=== PATIENT | female | born 1990 | race Two or more races ===

== ENCOUNTER 2018-05-09 09:10 | Inpatient (IN) | payer SELFPAY ==
[2018-05-09] MEDS ORDERED: PROMETHAZINE HCL 25 MG/1 ML VIAL IVPUSH ONE ×2 (09:44→13:21)
[2018-05-09] MEDS ORDERED: BUTORPHANOL TARTRATE 1 MG/ML VIAL IVPB ONE (09:44)
[2018-05-09] MEDS ORDERED: ELECTROLYTE-148 SOLN 1,000 ML IV SCH (09:45)
[2018-05-09] MEDS ORDERED: AMPICILLIN - 2 GM in SODIUM CHLORIDE 100 ML IVPB ONE (09:48)
[2018-05-09] MEDS ORDERED: AMPICILLIN SODIUM 2 GM VIAL ONE (09:49)
[2018-05-09 10:16] VITALS: BMI 32.5
[2018-05-09] MEDS ORDERED: OXYTOCIN 30 UNITS in 0.9% NS 30 UNIT/500 ML INFUS.BAG IVPB SCH (10:30)
[2018-05-09] MEDS ORDERED: BUTORPHANOL TARTRATE 1 MG/ML VIAL ONE ×2 (10:38)
[2018-05-09] MEDS ORDERED: PROMETHAZINE HCL 25 MG/1 ML VIAL ONE (10:38)
[2018-05-09] MEDS ORDERED: OXYTOCIN 20 UNITS in 0.9% NS 0 UNIT/0 ML INFUS.BAG IV ONE (10:40)
[2018-05-09 10:55] LABS: BASO % 0.3 % (0-2.0); EOS % 0.5 % (0-4.5); HEMATOCRIT 35.5 % (32.4-45.2); HEMOGLOBIN 12.5 GM/dL (10.7-15.3); LYMPH % 19.5 % (8-40); MCH 32.2 pg (25.7-33.7); MCHC 35.2 g/dl (32.0-36.0); MEAN CELL VOLUME 91.7 fl (80-96); MEAN PLT VOLUME 11.6 fl (7.5-11.1); MONO % 3.7 % (3.8-10.2); PLATELET COUNT 105 K/MM3 (134-434); RBC 3.87 M/mm3 (3.60-5.2); RDW 15.2 % (11.6-15.6)
[2018-05-09] MEDS ORDERED: OXYTOCIN 30 UNITS in 0.9% NS 30 UNIT/500 ML INFUS.BAG IVPB ONE (10:58)
--- NOTE | 2018-05-09 11:05 | HP ---
Past Medical History - Primary Care Physician PCP:: Charleen Yoon - Admission Chief Complaint: 27 yrs , 39 .3 weeks gestation brought by ambulence .onset LP at 6.00AM . History of Present Illness: care at [facility] chart not available , requested wt gain 6 lbs . 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 Weeks Gestation by Dates: 39.3 ...EDC by Dates: 05/13/18 Heme/Onc: Yes: Other (unknown) Infectious Disease: Yes: Other Psych: No: Addictions, Anxiety, Bipolar, Depression, Panic, Psychosis, Schizophrenia, Other Endocrine: Yes: Other (unknown) - Past Surgical History Past Surgical History: Yes: None Hx Myomectomy: No Hx Transabdominal Cerclage: No - Smoking History Smoking history: Never smoked Have you smoked in the past 12 months: No - Alcohol/Substance Use Hx Alcohol Use: No Home Medications - Allergies Allergies/Adverse Reactions: Allergies Allergy/AdvReac Type Severity Reaction Status Date / Time No Known Allergies Allergy Verified 05/09/18 09:43 - Home Medications Home Medications: Ambulatory Orders Vitamins (Sjr) - 1 tab PO DAILY 05/09/18 Physical Exam - Maternity Vital Signs: Vital Signs Temperature 97.9 F 05/09/18 10:00 Pulse Rate 87 05/09/18 10:00 Respiratory Rate 20 05/09/18 10:00 Blood Pressure 115/76 05/09/18 10:00 O2 Sat by Pulse Oximetry (%) Selected Entries 05/09/18 10:00 Weight 196 lb Constitutional: Yes: Well Nourished Eyes: Yes: WNL HENT: Yes: WNL, Normocephalic Neck: Yes: WNL Cardiovascular: Yes: WNL Lungs: Clear to auscultation Breast(s): Yes: WNL - Abdominal Exam/OB Fundal Height: 38 Number of Fetuses: Single Presentation: Vertex (exam at 9.45 AM) Contractions: Yes Regularity: Irregular (4-7 min) Intensity: Moderate Monitor Mode: External Heart Rate (range): 140 Heart Rate Location: [facility] Category: I Accelerations: Uniform - Vaginal Exam/OB Vaginal Bleediing: No Speculum Exam: No Dilatation (cm): 6 Effacement (%): 80 Amniotic Membrane Status: Intact Presentation: Vertex/Position Station: -1 (-1/-2) - Physical Exam Musculoskeletal: Yes: WNL Extremities: Yes: WNL. No: Calf Tenderness Integumentary: Yes: Tattoos Deep Tendon Reflex Grade: Normal +2 ...Motor Strength: WNL Psychiatric: Yes: WNL, Alert, Oriented - Labs Lab Results: CBC, BMP 05/09/18 10:31 Laboratory Tests 05/09/18 10:31 PT with INR 11.30 INR 0.96 PTT (Actin FS) 27.8 Laboratory Tests 05/09/18 05/09/18 05/09/18 10:20 10:20 10:31 Sodium Potassium Chloride Carbon Dioxide Anion Gap BUN Creatinine Creat Clearance w eGFR Random Glucose Calcium Total Bilirubin AST ALT Total Protein Albumin Urine Protein Negative Urine Ketones Trace H Ur Leukocyte Esterase 3+ H Opiates Screen Negative Methadone Screen Negative Barbiturate Screen Negative Phencyclidine Screen Negative Ur Amphetamines Screen Negative MDMA (Ecstasy) Screen Negative Benzodiazepines Screen Negative Cocaine Screen Negative U Marijuana (THC) Screen Negative RPR Titer Nonreactive HIV 1&2 Antibody Screen HIV P24 Antigen 05/09/18 05/09/18 10:31 10:31 Sodium 140 Potassium 3.8 Chloride 107 Carbon Dioxide 23 Anion Gap 10 BUN 6 L Creatinine 0.5 L Creat Clearance w eGFR > 60 Random Glucose 66 L Calcium 9.1 Total Bilirubin 0.5 AST 16 ALT 14 Total Protein 6.5 Albumin 2.8 L Urine Protein Urine Ketones Ur Leukocyte Esterase Opiates Screen Methadone Screen Barbiturate Screen Phencyclidine Screen Ur Amphetamines Screen MDMA (Ecstasy) Screen Benzodiazepines Screen Cocaine Screen U Marijuana (THC) Screen RPR Titer HIV 1&2 Antibody Screen Negative HIV P24 Antigen Negative Problem List - Problems (1) with 39 completed weeks gestation Code(s): Z3A.39 - 39 WEEKS GESTATION OF (2) Positive GBS test Code(s): B95.1 - STREPTOCOCCUS, GROUP B, CAUSING DISEASES CLASSD ELSWHR (3) with care elsewhere Code(s): Z34.90 - ENCNTR FOR SUPRVSN OF NORMAL , UNSP, UNSP TRIMESTER (4) Labor established Code(s): JHK3124 - Assessment/Plan 27 yrs 39.3 weeks admitted in labor, drop in h/o gbs positive , Prophylaxis with IV Ampicillin started at 9.50AM pitocin augmentation, uc are irregular .started at 10 .45AM stadol 2 mg + phenrgan 25 mg iv stat for labor analgesia -at 10.45 AM . 12.30 PM chart obtained & reviewed panel 11/09/17 : O pos, , PLT 158, , rpr nr, Hbsg neg, hiv neg Pap normal, gc/ct neg, 1 hr gtt 64 , Measles positive NT Screen neg, SMA neg, Fragile X neg 10/30/17 dating sono : 12 3 days 12/25/17 : 21.4 wks , , by sono 22.2 weeks , intracardiac echogenic focus sono 04/30/18 1 hr Gtt 154, GBS pos , gc/ct neg , h/h 11.6/33.9, plt 104, Hiv neg
[2018-05-09 11:07] LABS: INR 0.96 (0.83-1.09); PROTHROMBIN TIME (PATIENT) 11.3 SEC (9.7-13.0)
[2018-05-09 11:10] LABS: ACTIVATED PTT 27.8 SECONDS (25.2-36.5)
[2018-05-09 11:25] LABS: URINE APPEARANCE SLCLOUDY; URINE BILIRUBIN NEGATIVE (<2.0 mg/dL); URINE COLOR YELLOW; URINE GLUCOSE (UA) NEGATIVE (NEGATIVE); URINE KETONE TRACE (NEGATIVE); URINE LEUK ESTERASE 3+ (NEGATIVE); URINE NITRITE NEGATIVE (NEGATIVE); URINE PROTEIN NEGATIVE (NEGATIVE); URINE UROBILINOGEN NEGATIVE mg/dL (0.2-1.0)
[2018-05-09 11:26] LABS: ALBUMIN 2.8 g/dl (3.4-5.0); ALK PHOS 217 U/L (45-117); ANION GAP 10 MMOL/L (8-16); BILIRUBIN,TOTAL 0.5 mg/dL (0.2-1); BLOOD UREA NITROGEN 6 mg/dL (7-18); CALCIUM 9.1 mg/dL (8.5-10.1); CHLORIDE 107 mmol/L (98-107); CO2 23 mmol/L (21-32); CREATININE 0.5 mg/dL (0.55-1.3); GLUCOSE,RANDOM 66 mg/dL (74-106); POTASSIUM 3.8 mmol/L (3.5-5.1); SGOT/AST 16 U/L (15-37); SGPT/ALT 14 U/L (13-61); SODIUM 140 mmol/L (136-145); TOT PROT 6.5 g/dl (6.4-8.2)
[2018-05-09 11:29] LABS: EPI CELLS FEW /HPF (FEW); URINE BACTERIA RARE /hpf (NONE SEEN)
[2018-05-09 12:19] LABS: COCAINE, UR NEGATIVE ng/ml (CUTOFF=300); METHADONE, UR NEGATIVE ng/ml (CUTOFF=300); OPIATES, URI NEGATIVE ng/ml (CUTOFF=300); PHENCYCLIDINE,URINE NEGATIVE ng/ml (CUTOFF=25); URINE AMPHETAMINES NEGATIVE ng/ml (CUTOFF=500); URINE BARBITURATES NEGATIVE ng/ml (CUTOFF=200); URINE BENZODIAZEPINES NEGATIVE ng/ml (CUTOFF=200)
--- NOTE | 2018-05-09 12:45 | PN ---
Progress Note, Labor Vaginal Exam #1 Labor Exam Date: 05/09/18 Labor Exam Time: 12:30 Heart Rate (range): 130 Dilatation: 8 Effacement (%): 90 Amniotic Membrane Status: Ruptured (srom at 11.52 AM) Presentation: Vertex/Position Station: -1 (-1/0) Remarks: fhr cat-1 uc 3-4 min Selected Entries 05/09/18 05/09/18 10:00 11:00 Temperature 97.9 F Pulse Rate 87 82 Blood Pressure 115/76 120/52 L Vaginal Exam #2 Labor Exam Date: 05/09/18 Labor Exam Time: 13:55 Heart Rate (range): 125 Dilatation: 10 Effacement (%): 100 Amniotic Membrane Status: Ruptured Presentation: Vertex/Position Station: +2 Remarks: fhr cat-1, UC q 2min pt wants to push stadol1 mg + ohenrgan 25 mg iv stat was given at 1.30 PM 2 gm IVAmpicillin given
[2018-05-09 12:50] LABS: URIC ACID 4.6 mg/dL (2.6-7.2)
[2018-05-09] MEDS ORDERED: BUTORPHANOL TARTRATE 1 MG/ML VIAL IVPUSH ONE (13:21)
[2018-05-09] MEDS ORDERED: AMPICILLIN - 1 GM in SODIUM CHLORIDE 100 ML IVPB SCH (13:48)
[2018-05-09] MEDS ORDERED: OXYTOCIN 20 UNITS in 0.9% NS 20 UNIT/1,000 ML INFUS.BAG IV ONE (13:56)
[2018-05-09] MEDS ORDERED: BENZOCAINE 28 GM HEMORRHOIDAL OINTMENT TP PRN (14:19)
[2018-05-09] MEDS ORDERED: METHYLERGONOVINE MALEATE 0.2 MG/1 ML AMP IM PRN (14:19)
[2018-05-09] MEDS ORDERED: BENZOCAINE 20% 57 GM BOTTLE TP PRN (14:19)
[2018-05-09] MEDS ORDERED: WITCH HAZEL 50% (TUCKS) 40 PAD/JAR PAD TP PRN (14:19)
[2018-05-09] MEDS ORDERED: BISACODYL 10 MG SUPP.RECT RC PRN (14:19)
[2018-05-09] MEDS ORDERED: OXYTOCIN 20 UNITS in 0.9% NS 20 UNIT/1,000 ML INFUS.BAG IV SCH (14:30)
[2018-05-09 15:11] LABS: VENOUS PC02 38.9 mmHg (38-52); VENOUS PH 7.37 (7.32-7.42); VENOUS PO2 31.2 mmHg (28-48)
--- NOTE | 2018-05-09 15:16 | PN ---
Delivery - Delivery Vaginal Delivery: No Problems, Spontaneous (baby delievered Vx presentation , Raul position, cord around neckx1 was released before delivery of ant shoulder. perineum & vagina was intact . placenta & membranes delievered completely . 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
[2018-05-09] MEDS ORDERED: IBUPROFEN 600 MG TABLET (FP) PO ONE (15:29)
[2018-05-09] MEDS ORDERED: ACETAMINOPHEN 325 MG TABLET (FP) ONE (15:29)
[2018-05-09] MEDS: IBUPROFEN 600 MG TABLET (FP) PO PRN (15:30)
[2018-05-09] MEDS: ACETAMINOPHEN 325 MG TABLET (FP) PO PRN ×2 (15:30→18:50)
[2018-05-09] MEDS: FERROUS SO4 325 MG TABLET (FP) PO SCH (18:50)
[2018-05-10 05:24] LABS: HBsAG SCREEN Negative (Negative)
[2018-05-10] MEDS: IBUPROFEN 600 MG TABLET (FP) PO PRN ×2 (05:59→19:24)
[2018-05-10] MEDS: ACETAMINOPHEN 325 MG TABLET (FP) PO PRN ×2 (06:00→19:23)
--- NOTE | 2018-05-10 08:03 | PN ---
Post Progress Note Type of Delivery: Vital Signs: Vital Signs Temperature 98 F 05/10/18 06:00 Pulse Rate 82 05/10/18 06:00 Respiratory Rate 18 05/10/18 06:00 Blood Pressure 104/62 05/10/18 06:00 O2 Sat by Pulse Oximetry (%) 100 05/09/18 15:15 Uterus: Yes: Fundus Firm, Fundus below umbilicus Abdomen/GI: Yes: Abdomen soft Lochia: Yes: Rubra Lochia, amount: Small Extremities: Yes: Calves non-tender Perineum: Yes: Intact Activity: Ambulating - Labs Labs: CBC WBC 13.0 K/mm3 (4.0-10.0) H 05/09/18 10:31 RBC 3.87 M/mm3 (3.60-5.2) 05/09/18 10:31 Hgb 12.5 GM/dL (10.7-15.3) 05/09/18 10:31 Hct 35.5 % (32.4-45.2) 05/09/18 10:31 MCV 91.7 fl (80-96) 05/09/18 10:31 MCH 32.2 pg (25.7-33.7) 05/09/18 10:31 MCHC 35.2 g/dl (32.0-36.0) 05/09/18 10:31 RDW 15.2 % (11.6-15.6) 05/09/18 10:31 Plt Count 105 K/MM3 (134-434) L 05/09/18 10:31 MPV 11.6 fl (7.5-11.1) H 05/09/18 10:31 Absolute Neuts (auto) 9.8 K/mm3 (1.5-8.0) H 05/09/18 10:31 Neutrophils % 76.0 % (42.8-82.8) 05/09/18 10:31 Lymphocytes % 19.5 % (8-40) 05/09/18 10:31 Monocytes % 3.7 % (3.8-10.2) L 05/09/18 10:31 Eosinophils % 0.5 % (0-4.5) 05/09/18 10:31 Basophils % 0.3 % (0-2.0) 01/16/19 10:31 Nucleated RBC % 0 % (0-0) 05/09/18 10:31 Assessment/Plan 27yo s/p , PPD#1 Routine PP care Labs pending OOB, ambulate Anticipate d/c to home tomorrow Nichole Ferro MD
[2018-05-10 08:06] LABS: BASO % 0.5 % (0-2.0); EOS % 1.2 % (0-4.5); HEMATOCRIT 31.5 % (32.4-45.2); HEMOGLOBIN 10.9 GM/dL (10.7-15.3); LYMPH % 30.6 % (8-40); MCH 32.3 pg (25.7-33.7); MCHC 34.7 g/dl (32.0-36.0); MEAN CELL VOLUME 93.1 fl (80-96); MEAN PLT VOLUME 11.6 fl (7.5-11.1); NEUT % 63.7 % (42.8-82.8); PLATELET COUNT 98 K/MM3 (134-434); RBC 3.39 M/mm3 (3.60-5.2); RDW 15.2 % (11.6-15.6); WHITE BLOOD COUNT 12.1 K/mm3 (4.0-10.0)
[2018-05-10] MEDS: FERROUS SO4 325 MG TABLET (FP) PO SCH ×2 (08:27→18:09)
[2018-05-10] MEDS: PRENATAL VITAMINS W/ FOLIC ACID TABLET (FP) PO SCH (09:37)
[2018-05-10] MEDS ORDERED: SENNOSIDES/DOCUSATE COMBO (SENNA PLUS) TABLET (UD) PO PRN (22:00)
[2018-05-10 22:21] VITALS: TEMP 98.3
[2018-05-11] MEDS: ACETAMINOPHEN 325 MG TABLET (FP) PO PRN ×2 (04:11→11:31)
[2018-05-11] MEDS: IBUPROFEN 600 MG TABLET (FP) PO PRN ×2 (04:12→11:30)
--- NOTE | 2018-05-11 07:32 | PN ---
Progress Note (short form) - Note Progress Note: ppd 2 doing wel, no c/o .voids ok Last Vital Signs Temp Pulse Resp BP Pulse Ox 98.3 F 81 18 108/65 100 05/10/18 22:00 05/10/18 22:00 05/10/18 22:00 05/10/18 22:00 05/09/18 15:15 abdomen soft, uterus firm, non tender lochia mild no calf tenderness plan d/c home, rtc 4 weeks
[2018-05-11] MEDS: FERROUS SO4 325 MG TABLET (FP) PO SCH (08:23)
[2018-05-11] MEDS: PRENATAL VITAMINS W/ FOLIC ACID TABLET (FP) PO SCH (10:00)
[2018-05-11 10:04] VITALS: BP 107/52; PULSE 80
--- NOTE | 2018-05-11 12:37 | DS ---
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: Vital Signs Temperature 98.3 F 05/11/18 09:59 Pulse Rate 80 05/11/18 09:59 Respiratory Rate 18 05/11/18 09:59 Blood Pressure 107/52 L 05/11/18 09:59 O2 Sat by Pulse Oximetry (%) 100 05/09/18 15:15 Constitutional: Yes: Well Nourished Eyes: Yes: WNL HENT: Yes: WNL, Normocephalic Neck: Yes: WNL Cardiovascular: Yes: WNL Respiratory: Yes: WNL, CTA Bilaterally Gastrointestinal: Yes: WNL, Normal Bowel Sounds ...Rectal Exam: Yes: WNL Renal/: Yes: WNL Pelvis: Yes: WNL External Genitalia: Yes: Normal ....Post : Yes: Uterus firm, Uterus non-tender, Moderate lochia rubra Breast(s): Yes: WNL, Other (BF) Musculoskeletal: Yes: WNL Extremities: Yes: WNL. No: Calf Tenderness Edema: LLE: 1+, RLE: 1+ Integumentary: Yes: WNL Neurological: Yes: WNL ...Motor Strength: WNL Psychiatric: Yes: WNL, Alert, Oriented Labs: CBC, BMP 05/10/18 06:30 05/09/18 10:31 Delivery - Delivery Vaginal Delivery: No Problems, Spontaneous (baby delievered Vx presentation , [place] position, cord around neckx1 was released before delivery of ant shoulder. perineum & vagina was intact . placenta & membranes delievered completely . 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 pp course uneventful discharge 05/11/18 Discharge Summary Reason For Visit: LABOR ADMISSION Current Active Problems Labor established (Acute) Positive GBS test (Acute) with 39 completed weeks gestation (Acute) with care elsewhere (Acute) Condition: Stable - Instructions Diet, Activity, Other Instructions: Discharge Instructions * Out of Bed * * Regular Diet * Kristin Care * Avoid sex for 6 weeks * RTC for pp visit 4-6 weeks , 2wesley .Call for appt at [phone] If you experience excessive bleeding or fever over 101 degrees, call doctor, the clinic or go to the Emergency Room.Regular Diet Disposition: HOME - Home Medications Comprehensive Discharge Medication List: Ambulatory Orders Ibuprofen 600 mg PO Q6H PRN #30 tablet 05/09/18 Vitamins (Sjr) - 1 tab PO DAILY 05/09/18
== END 2018-05-11 12:20 | disposition home or self-care (01) | DRG 560 ==
LOC: JDEL 09:10 → JLDR 09:35 → J3W 16:56
PROVIDERS: ADMIT Obstetrics & Gynecology; ATTEND Obstetrics & Gynecology
PROC: 10E0XZZ Delivery of Products of Conception, External Approach (ICD-10-PCS; principal; 2018-05-09)
DX: O99.824 Streptococcus B carrier state complicating childbirth (principal); O69.81X0 Labor and delivery complicated by cord around neck, without compression, not applicable or unspecified; Z3A.39 39 weeks gestation of pregnancy; Z37.0 Single live birth
CPT/HCPCS: 36415; 59409; 80053; 80307; 81003; 81015; 82803; 84550; 85025; 85610; 85730; 86593; 86762; 86850; 86900; 86901; 87340; 87389